=== PATIENT | male | born 1995 | race Caucasian/White ===

== ENCOUNTER 2019-08-07 11:09 | Emergency (ER) | payer OTHER ==
[2019-08-07 11:22] VITALS: BP 138/76
--- NOTE | 2019-08-07 12:06 | XRAY Report ---
Reason: left wrist injury Procedure Date: 08/07/2019 Accession Number: [id number] / [id number] Procedure: XR - Wrist 4 View LT CPT Code: Final Report FULL RESULT: EXAM: LEFT WRIST RADIOGRAPHY EXAM DATE: 08/07/2019 11:40 AM. CLINICAL HISTORY: Left wrist injury. COMPARISON: None. TECHNIQUE: 4 views. FINDINGS: Bones: Normal. No fractures or bone lesions. Joints: Normal. No subluxations. Soft Tissues: Normal. No soft tissue swelling. IMPRESSION: Normal wrist radiography. [facility]
--- NOTE | 2019-08-07 12:22 | ED Physician Documentation ---
PD HPI UPPER EXT INJURY - Stated complaint Stated Complaint: LT WRIST PX, GLF - Chief complaint Chief Complaint: Ext Problem - History obtained from History obtained from: Patient - History of Present Illness Location: Left (Slipped on the ice yesterday and had a fall on an outstretched wrist, complains of ulnar side left wrist pain. No other injuries. 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.) Review of Systems Constitutional: reports: Reviewed and negative Ears: reports: Reviewed and negative Nose: reports: Reviewed and negative PD PAST MEDICAL HISTORY - Present Medications Home Medications: Ambulatory Orders Medication Instructions Recorded Confirmed Ibuprofen [Motrin] 800 mg PO Q8H PRN #30 tablet 08/07/19 - Allergies Allergies/Adverse Reactions: Allergies Allergy/AdvReac Type Severity Reaction Status Date / Time No Known Drug Allergies Allergy Verified 08/07/19 11:22 PD ED PE NORMAL - Vitals Vital signs reviewed: Yes - General General: Alert and oriented X 3, No acute distress - Extremities Extremities: Other (Left wrist is nontender with full range of motion) - Neuro Neuro: Alert and oriented X 3, Normal speech Results - Vitals Vitals: Vital Signs - 24 hr 08/07/19 11:19 Temperature 36.8 C Heart Rate 69 Respiratory 16 Rate Blood Pressure 138/76 H O2 Saturation 98 Oxygen O2 Source Room air - Rads (name of study) 4 views of the left wrist x-ray Radiology: EMP read contemporaneously (Normal) Departure - Departure Disposition: Home, Self Care Clinical Impression: Unspecified sprain of left wrist, initial encounter Condition: Good Record reviewed to determine appropriate education?: Yes Instructions: ED Sprain Wrist Prescriptions: Ibuprofen [Motrin] 800 mg PO Q8H PRN #30 tablet PRN Reason: PAIN &/OR FEVER Comments: Recheck with your doctor in 1 week if not improved, return for new or worsening symptoms. Your blood pressure was elevated today on check into the emergency department. This does not mean that you have hypertension, it is a common phenomenon to come to the emergency department and have elevated blood pressure. I recommend that you see your primary care physician within the week to have it rechecked when you are feeling better. Forms: Activity restrictions
== END 2019-08-07 12:30 | disposition home or self-care (01) ==
LOC: ED 11:09
DX: S63.502A Unspecified sprain of left wrist, initial encounter (principal); W00.0XXA Fall on same level due to ice and snow, initial encounter; R03.0 Elevated blood-pressure reading, without diagnosis of hypertension
CPT/HCPCS: 99283

== ENCOUNTER 2022-03-19 19:22 | Outpatient (CLI) | payer OTHER | END 2022-03-19 19:23 | disposition home or self-care (01) | LOC: SC 19:22 | PROVIDERS: ATTEND Nurse Practitioner Family | DX: G47.33 Obstructive sleep apnea (adult) (pediatric) (principal); Z68.36 Body mass index [BMI] 36.0-36.9, adult | CPT/HCPCS: 95810 ==

== ENCOUNTER 2022-03-31 12:26 | Outpatient (CLI) | payer OTHER ==
--- NOTE | 2022-03-31 15:33 | SLEEP CARE CONSULTATION ---
Information from patient questionnaire entered by Lorenza Chen MA. I have reviewed and concur with the information entered by Lorenza Chen MA. This document represents the service I personally performed and the decisions made by , Anjana Frost ARNP. History of Present Illness Service Date and Time: 03/31/2022 1226 Initial [place] Sleepiness Scale score: 11 (03/10/2022) Current [place] Sleepiness Scale score: 9 Additional HPI information: ANAYELI FLORENCE returns for follow up and results of the recently performed polysomnography. I explained the pathophysiology behind obstructive sleep apnea. We then spent quite a bit of time discussing different treatment options. For mild obstructive sleep apnea, surgery and oral appliance are alternatives to nasal CPAP therapy but in moderate or severe cases, nasal CPAP is the most effective and reliable treatment. Because apnea is primarily in supine position, then positional management therapy could be effective. Methods discussed such as positioning with pillows to prevent supine sleep. I reviewed the impact of weight changes on sleep apnea and strongly recommended losing weight. After some discussion, the patient opted to go with the nasal CPAP therapy. Nasal autoCPAP set at 4-15 cmH20 will be ordered with rationale explained. A manual titration study will be ordered if unable to find optimal pressure with office adjustments. I explained how CPAP machine works and what to expect when using the machine. Using CPAP every night in order to get used to it was emphasized. Patient advised to put CPAP mask on before getting into bed so as not to fall asleep without CPAP. To assist acclimation to CPAP use, it could also be used for a short time during day while reading or watching TV. The patient was instructed to call the CPAP supplier to discuss any mechanical problem that may occur. If the mask given is uncomfortable or is difficult to keep on through the night even with adjustment, contact the CPAP supplier as many will replace with another mask style if notified before 30 days. If snoring or perceives is not getting enough air or too much air from the machine, notify this office. Patient was cautioned about risks of drowsy driving until sleepiness symptoms resolve. Sleep Study - Results Prior sleep studies: No Polysomnography/Home Sleep Study results: IMPRESSION: The quality of the study is good. The patient had reduced sleep efficiency due to several prolonged awakenings during the night. The sleep stage distribution was normal. Respiratory monitoring showed mild obstructive sleep apnea-hypopnea (AHI = 14.7) associated with oxyhemoglobin desaturation and moderate hypoxia (soniya oxygen saturation of 70%). Baseline oxygen saturation was normal. The respiratory events occurred independently of sleep stage and body position (supine AHI = 19.9; non-supine = 10.16). Snore was moderate in intensity. There was no significant periodic leg movement of sleep. Cardiac rhythm was normal sinus rhythm without significant arrhythmia. No abnormal behavior (parasomnia) observed during the night. Allergies and Home Medications Home medication list reviewed: Yes (no changes yet) Allergy and home medication list: Allergies No Known Drug Allergies Allergy (Verified 08/07/19 11:22) Review of Systems Review of systems same as previous: No (HEPATITIS STEATOSIS FATTY LIVER DISEASE.) Physical Exam Vital signs obtained and entered by: NINA HE Blood Pressure: 130/96 (LEFT) Cuff size: wrist Heart Rate: 97 O2 Saturation: 97 Height: 5 ft 7 in Weight: 246 lb Body Mass Index: 38.5 BMI Classification: Obese Impression and Plan 1. Obstructive Sleep Apnea-Hypopnea Syndrome, mild, with lowest oxygen saturation of 70%. Obviously this is the cause of the patients symptoms of unrefreshed sleep, and excessive daytime sleepiness. As mentioned above, the patient will be started on nasal autoCPAP therapy with pressure set at 4-15 cmH2 O. Compliance guidelines also reviewed. A copy of compliance guidelines will be given for reference at check out. Because the apnea is more severe supine, I instructed to avoid sleeping supine using pillow positioning until able to start CPAP use. 2. Hypoxemia, moderate, with a soniya oxygen saturation of 70% and 4.6 minutes spent under 90%. His baseline oxygen saturation was normal with an average oxygen saturation of 91%. * Nasal auto CPAP therapy, pressure at 4-15 cm H2O. * Attempt to lose weight. * Avoid alcohol consumption near bedtime. * Avoid supine sleep until using CPAP. * The patient is again cautioned about driving until sleepiness completely resolves. * Return one month after CPAP obtained. I will assess response to therapy and compliance at that time. Counseling Topics: Weight loss health impact Visit Type: In Office Time Spent with Patient (minutes): 22 Provider Statement: I spent 100% of the Face to Face Visit with the patient with greater than 50% spent counseling the patient and coordination of care.
[2022-03-31 15:34] VITALS: BP 130/96
== END 2022-03-31 12:27 | disposition home or self-care (01) ==
LOC: SC 12:26
PROVIDERS: ATTEND Nurse Practitioner Family
DX: G47.33 Obstructive sleep apnea (adult) (pediatric) (principal); R09.02 Hypoxemia; E66.9 Obesity, unspecified; Z68.35 Body mass index [BMI] 35.0-35.9, adult
CPT/HCPCS: 99212; 99213